=== PATIENT | male | born 1965 | race Caucasian/White ===

== ENCOUNTER 2016-08-12 01:51 | Emergency (ER) | payer OTHER ==
[~2016-08-12] VITALS: Ht 175.3 cm; Wt 73.6 kg
[2016-08-12 01:54] VITALS: BP 140/88; PULSE 107; RESP 18; O2SAT 98
[2016-08-12] MEDS ORDERED: HYDROmorphone 1 mg/mL Inj IVPUSH PRN (03:00)
[2016-08-12] MEDS ORDERED: Ondansetron 8 mg ODT Tablet PO ONE (03:00)
[2016-08-12] MEDS ORDERED: 0.9% Sodium Chloride 1,000 ML IV SCH ×2 (03:00→03:20)
--- NOTE | 2016-08-12 03:14 | ED.REPORT ---
HPI-Abd Pain M 40 and Over Date of Service Aug 12, 2016 ED Provider: Everardo Forte DO Mr. Zamorano is a 51 y/o man who presents today for vomiting, diarrhea, and periumbilical abdominal pain that started at 8:30 PM last night suddenly. His abdominal pain is cramping and gets worse after he drinks water. He has had 5 episodes of vomiting and 4 episodes of diarrhea. He has not been able to keep even liquids down. Diarrhea has been watery. No blood in his vomiting or diarrhea. 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 He works in housekeeping. Nursing Notes Stated Complaint: VOMITING, DIARRHEA Chief Complaint: Male Abdominal Pain Nursing Notes Reviewed: Yes Allergies: Coded Allergies: promethazine (Verified Allergy, Unknown, 08/12/16) Scheduled Metronidazole (Flagyl) 500 Mg Tablet 500 MG PO Q8H Scheduled PRN Ondansetron ODT (Ondansetron ODT) 8 Mg Tab.rapdis 8 MG PO QID PRN PRN For Nausea General Time Seen by MD: 02:10 Chief Complaint Abdominal pain, Diarrhea severe Hx Obtained From: Patient Arrived By: Walk-in Sudden in Onset?: Yes Onset Occurred: 5 - 8 hours ago Context of Onset: After vomiting Progression since Onset: Gradually worsening Associated with: Reports: Anorexia, Diarrhea, Vomiting, Denies: Chills, Dysuria, Fever, Hematemesis, Hematochezia, Hematuria, Melena , Urinary tract symptoms Exacerbated by: Eating (drinking water) Pertinent Negative: Relieved by nothing Past Medical History Past Medical History none known Past Surgical History denies Denies: Appendectomy, Cholecystectomy Smoking History Never Smoker Social History Alcohol Use: Denies alcohol use Drug Use: Denies drug use Ambulatory Status Independent Review of Systems Basic Review of Systems Eyes: Vision NL, No discharge ENT: Hearing NL, No pain, No nasal congestion, No pharyngeal pain Hematologic: No bleeding, No bruising Neurologic: NL mental status, No weakness, No numbness Psychiatric: Normal thought content Constitutional: Denies: Chills, Fever Respiratory: Denies: Non-productive cough, Shortness of breath Cardiovascular: Denies: Chest pain GI: Reports: Abdominal pain, Vomiting, Denies: Bloody/tarry stool, Constipation, Hematemesis, Hematochezia Male: Denies Dysuria, Denies Urinary frequency, Denies Urinary urgency Musculoskeletal: Denies: Back pain Physical Exam Initial Vital Signs Vital Signs (First) Date Time Temp Pulse Resp B/P Pulse Ox O2 Delivery O2 Flow Rate FiO2 08/12/16 01:54 36.9 107 18 140/88 98 Room Air Initial VS: Reviewed, Vital signs abnormal Head / Eyes: Atraumatic, Normocephalic, PERRL Neck: Supple, Non-tender, Full range of motion Lymphatic: No lymphadenopathy Skin: Warm, Dry, No cyanosis Neurologic: Alert, Oriented, Nonfocal Respiratory / Chest: Breath sounds = bilat, No respiratory distress, No rales, No rhonchi, No wheezing Cardiovascular: Heart rate NL, Regular rhythm, Heart sounds NL, No gallop, No murmurs, No rubs Abdomen: Atraumatic, Soft, No guarding, No rebound Tenderness/Guarding/Rebound: Positive: Tender diffuse Bowel Sounds / Distention: Positive: Bowel sounds hyperactive Mouth: Positive: Mucous membranes dry Interpretation & Diagnostics Lab Results Interpretation Result Diagram: 08/12/16 0346 08/12/16 0346 Test 08/12/16 03:46 White Blood Count 11.2th/mm3 (3.8-10.1) Red Blood Count 5.64mil/mm3 (4.40-5.80) Hemoglobin 16.3g/dL (13.8-17.2) Hematocrit 46.5% (41.0-50.0) Mean Corpuscular Volume 82.4fL (81-100) Mean Corpuscular Hemoglobin 28.9pg (27.0-35.0) Mean Corpuscular Hemoglobin Concent 35.1% (32.0-37.0) Red Cell Distribution Width 12.8% (12.3-15.4) Platelet Count 275bil/L (150-400) Neutrophils (%) (Auto) 95.3% (40-74) Lymphocytes (%) (Auto) 1.8% (14-46) Monocytes (%) (Auto) 2.2% (4-12) Eosinophils (%) (Auto) 0.3% (0-5) Basophils (%) (Auto) 0.1% (0-3) Sodium Level 140mEq/L (134-144) Potassium Level 4.2mEq/L (3.5-5.2) Chloride Level 103mEq/L (97-108) Carbon Dioxide Level 22mmol/L (18-29) Blood Urea Nitrogen 36mg/dL (6-24) Creatinine 0.97mg/dL (0.76-1.27) Estimat Glomerular Filtration Rate 86mL/min (>59) Glucose Level 121mg/dL (60-99) Lactic Acid Level 1.1mmol/L (0.4-2.0) Calcium Level 9.1mg/dL (8.5-10.1) Total Bilirubin 1.2mg/dL (0.0-1.2) Aspartate Amino Transf (AST/SGOT) 26U/L (0-50) Alanine Aminotransferase (ALT/SGPT) 23U/L (0-44) Alkaline Phosphatase 55U/L (25-150) Total Protein 7.9g/dL (6.4-8.4) Albumin 4.4g/dL (3.4-5.0) Lipase 38U/L (13-60) Re-Eval/Medical Decision Med Decision/Clinical Course 1. Vomiting, diarrhea, and abdominal pain -Pt to be given ondansetron 8 mg ODT once, Dilaudid 0.5 mg IV q 15 minutes PRN pain, and 2,000 mL normal saline -CBC with diff, CMP, lipase, and lactic acid ordered and results pending -Stool C. diff ordered and results pending -CT abdomen and pelvis ordered and results pending Discharge & Departure Shift Change Sign-Out Laboratory Evaluation: Ordered, not yet done Imaging Studies: Ordered, not yet done Based on results of labs and CT imaging, pt may need to be admitted or may be discharged home. Departure Notes Departure Notes: Patient received a liter of fluid and first round of meds. He declined CAT scan ordered prior to my assuming care. Discussed that with him and it is not unreasonable, as he does appear to have a viral enteritis and will likely recover without surgical intervention. That can be pursued further if his symptoms do not joi or he develops bleeding or other symptoms of concern. He was given an additional liter of saline and some additional pain med, ultimately discharged in stable condition. Primary Impression: Abdominal pain Abdominal location: periumbilical Qualified Code: R10.33 - Periumbilical pain Additional Impression: Vomiting and diarrhea Disposition: Home Vital Signs - All Vital Signs Date Time Temp Pulse Resp B/P Pulse Ox O2 Delivery O2 Flow Rate FiO2 08/12/16 07:00 36.1 91 16 116/60 99 Room Air 08/12/16 06:46 36.1 91 16 116/60 99 Room Air 08/12/16 01:54 36.9 107 18 140/88 98 Room Air )( All Prior VS Reviewed: Yes Referrals: Jose Armando Banks MD (PCP) Care Transferred to: md raudel Care Transferred at: 03:00 Attending Statement I took a history of performing exam. I agree with the note above. 51-year-old male with vomiting, diarrhea and diffuse abdominal pain and tenderness. He does work at a longterm. He is tender enough to warrant diagnostic imaging as well as laboratory work. In the meantime we will treat him with IV fluids and IV analgesia and antiemetics. Case signed out to Dr. Thomason at the end of my shift. Rhianna Corona DO Aug 12, 2016 03:14 Everardo Forte DO Aug 12, 2016 03:52 Jori Thomason MD Aug 12, 2016 20:55
[2016-08-12 03:55] LABS: BASOPHILS % (AUTO) 0.1 % (0-3); EOSINOPHILS % (AUTO) 0.3 % (0-5); MONOCYTES % (AUTO) 2.2 % (4-12); Mean Corpuscular Hemoglobin 28.9 pg (27.0-35.0); Mean Corpuscular Volume 82.4 fL (81-100); NEUTROPHILS % (AUTO) 95.3 % (40-74); Platelet Count 275 bil/L (150-400)
[2016-08-12] MEDS ORDERED: METR500T PO (05:18)
[2016-08-12] MEDS ORDERED: ONDA8TAB10 PO (05:18)
[2016-08-12] MEDS ORDERED: 0.9% Sodium Chloride 1,000 ML IV ONE (05:25)
[2016-08-12] MEDS ORDERED: HYDROmorphone 1 mg/mL Inj IVPUSH ONE (05:25)
[2016-08-12 06:46] VITALS: BP 116/60; PULSE 91; RESP 16; O2SAT 99
[2016-08-12 07:00] VITALS: BP 116/60; PULSE 91; RESP 16; O2SAT 99
[2016-08-12] MEDS ORDERED: Sodium Chloride LOK Flush 10 mL Syringe IVFLUSH SCH (08:30)
== END 2016-08-12 06:52 | disposition home or self-care (01) ==
LOC: SED 01:51
DX: R10.33 Periumbilical pain (principal); R11.10 Vomiting, unspecified; R19.7 Diarrhea, unspecified; Z88.8 Allergy status to other drugs, medicaments and biological substances
CPT/HCPCS: 36415; 80053; 83605; 83690; 85025; 87493; 96361; 96374; 96376; 99284; J1170; J7030

== ENCOUNTER 2017-02-13 08:32 | Day surgery (SDC) | payer OTHER ==
[~2017-02-13] VITALS: Ht 175.3 cm; Wt 70.0 kg
[~2017-02-13 08:32] MED LIST: 0.9% Sodium Chloride 1,000 ML IV SCH; METR500T PO; ONDA8TAB10 PO; Sodium Chloride LOK Flush 10 mL Syringe IV PRN; fentaNYL-PF 50 mCg/mL 2 mL Inj IVPUSH PRN
[2017-02-13 08:56] VITALS: BP 114/73; PULSE 61; RESP 16; O2SAT 98
[2017-02-13 10:25] VITALS: BP 104/65; PULSE 55; RESP 16; O2SAT 100
[2017-02-13 10:33] VITALS: BP 97/60; PULSE 60; RESP 16; O2SAT 97
[2017-02-13 10:43] VITALS: BP 94/62; PULSE 61; RESP 16; O2SAT 97
[2017-02-13 10:54] VITALS: BP 114/62; PULSE 69; RESP 16; O2SAT 100
--- NOTE | 2017-02-13 16:38 | ENDO ---
[address] [address] ENDOSCOPY PROCEDURE PATIENT: CLARY RIVERA : 1965 MR#: [id number] ADMIT: 02/13/2017 JOB ID: [id number] DATE OF PROCEDURE: 02/13/2017 PRIMARY PROVIDER: Jose Armando Banks MD. PROCEDURE: A colonoscopy with hot snare polypectomy, cold forceps polypectomy, and Endoclip deployment. INDICATIONS: A 51-year-old male who reports for colon cancer screening. EQUIPMENT: PCF-H190L SEDATION: 7.5 mg Versed,125 mcg fentanyl. COMPLICATIONS: None identified. BOWEL PREPARATION: Fair, adequate exam. PROCEDURE INFORMATION: After the risks and benefits were explained, written and verbal informed consent was obtained, the patient was brought into the endoscopy suite and placed into the left lateral decubitus position. Sedation was achieved as above. A digital rectal examination accomplished. Mild internal/external nonbleeding, nonthrombosed hemorrhoids noted. The scope was introduced into the rectum and advanced under direct visualization to the level of the cecum, as identified by the appendiceal orifice and ileocecal valve. The scope was slowly withdrawn to carefully examine the mucosa for any defects or lesions. Multiple direct views were made through the dentate line for exclusion of pathology. The colon was decompressed. The scope removed from the patient who tolerated the procedure well. FINDINGS: In the cecum and in the rectosigmoid junction region, there were two diminutive polyps removed with cold forceps. At about 25 cm from the anal verge in the sigmoid there was a pedunculated polyp with a fairly broad stalk. This was removed with hot snare polypectomy. After the 1st excision, I felt that there might have been a small residual focus of adenoma still present on the stalk, so we repeated the excision slightly lower down on the stalk to remove all apparent adenomatous mucosa. Because the stalk was broad, we placed Resolution 360 clip in position to prophylax against postpolypectomy bleeding. This polyp measured in maximum dimension perhaps somewhere in the neighborhood of 12-15 mm. There was a similarly-sized polyp at around 15 cm from the anal verge and the stalk on this one was slightly more slender. This was removed successfully with hot snare and submitted separately. No other significant pathology was appreciated throughout. ENDOSCOPIC DIAGNOSES: Multiple colon polyps. RECOMMENDATIONS: 1. Await histopathology. 2. Repeat colonoscopy in three years.
--- NOTE | 2017-02-14 15:20 | PATH ---
SURGICAL PATHOLOGY Attending Physician:Ricky Cross CASE STATUS: Signed Out PATIENT NAME: LCARY RIVERA PID: [id number] : 1965 DATE COLLECTED:02/13/2017 16:39 SPECIMEN: 1: Colon, Polyp 2: Colon, Polyp 3: Colon, Polyp CLINICAL HISTORY: 1). COLON POLYPS X2 2). POLYP AT 25CM 3). POLYP AT 15CM FINAL DIAGNOSIS: 1. Colon, Polyps, Biopsies: Portions of tubular adenoma x2; negative for high-grade dysplasia. 2. Polyp at 25 cm, Biopsy: Portions of tubular adenoma x2; negative for high-grade dysplasia. 3. Polyp at 15 cm, Biopsy: Tubular adenoma; negative for high-grade dysplasia. ICD10: K63.5 GROSS DESCRIPTION: The specimen is received in three formalin filled containers labeled with the patient's name. 1). The specimen is labeled "colon polyps" and consists of 2 portions of tissue which aggregate to 0.2 x 0.2 x 0.2 CM. The specimen is entirely submitted in cassette 1A. 2). The specimen is labeled "polyp at 25 CM" and consists of 2 portions of tissue which aggregate to 0.7 x 0.5 x 0.5 CM. Both pieces are bisected and entirely submitted in cassette A2. 3). The specimen is labeled "polyp at 15 CM" and consists of a 0.7 x 0.7 x 1.2 CM portion of tissue which is trisected and entirely submitted in cassette 3A. 02/13/2017LA ICD-9 CODES: CPT CODES: 1: 13112 2: 92352 3: 63211 Electronically Signed Out Aishwarya Villarreal MD [facility] [address], [place] [address] Technical component performed at [facility], [facility] [address], [place], [address]
== END 2017-02-13 23:59 | disposition home or self-care (01) ==
LOC: END 08:32
PROVIDERS: ATTEND Internal Medicine Gastroenterology
DX: Z12.11 Encounter for screening for malignant neoplasm of colon (principal); D12.7 Benign neoplasm of rectosigmoid junction; D12.5 Benign neoplasm of sigmoid colon; K64.8 Other hemorrhoids; K64.4 Residual hemorrhoidal skin tags; G47.00 Insomnia, unspecified; Z87.891 Personal history of nicotine dependence
CPT/HCPCS: 45380; 45385; 99153; G0500; J2250; J3010; J7030